=== PATIENT | male | born 1960 | race Caucasian/White ===

== ENCOUNTER → 2018-05-11 | Outpatient (CLI) | payer OTHER ==
--- NOTE | 2018-05-11 16:35 | XR ---
PROCEDURE: XR shoulder complete RT 3V DATE AND TIME: 05/11/2018 4:29 PM CLINICAL INDICATION: [facility] S43.401A right shoulder injury TECHNIQUE: Department protocol. 3V COMPARISON: None FINDINGS: There is no fracture or malalignment. The soft tissues are unremarkable. IMPRESSION: NO ACUTE PROCESS.
== END ==
LOC: RADXRMAIN 16:11
PROVIDERS: ATTEND Emergency Medicine
DX: S43.401A Unspecified sprain of right shoulder joint, initial encounter (principal)